=== PATIENT | male | born 1990 | race Two or more races ===

== ENCOUNTER 2025-04-04 17:30 | Emergency (ER) | payer MEDICAID, SELFPAY ==
--- NOTE | 2025-04-04 17:35 | EKG_ITS ---
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
[2025-04-04 17:42] VITALS: BP 158/93; PULSE 118; RESP 18; TEMP 37.1; O2SAT 97; BMI 35.9
--- NOTE | 2025-04-04 17:50 | XR_ITS ---
Examination: PA lateral chest 2 views FINDINGS: Upright PA and lateral chest 2 views Date and time: April 04, 2025 1809 hours INDICATIONS: Chest pain cardiac catheterization today. FINDINGS: Normal heart size. Lungs are clear. The osseous structures are intact IMPRESSION: No active disease
--- NOTE | 2025-04-04 17:51 | EDRME_ITS ---
<Statement entered by Isabela Greene MD - 04/12/25 06:24> As co-signing physician, I was present and available for consult prn. I concur with the plan and care as documented by the midlevel provider. Rapid Medical Screening Exam RME Arrival date/time: 04/04/25 17:30 34-year-old male with no known medical history presents to the emergency room with a chief complaint of chest pain, palpitations, weakness. Patient states has been working out in the sun and states the symptoms have progressively gotten worse since this morning. I have greeted and performed a focused initial assessment of this patient. A comprehensive ED assessment and evaluation of the patient, analysis of all test results, and completion of the medical decision making process will be conducted by additional ED providers. Chief Complaint: Arrhythmia/Palpitations Vital signs: Vital Signs Temperature 98.8 F 04/04/25 17:42 Pulse Rate 118 H 04/04/25 17:42 Respiratory Rate 18 04/04/25 17:42 Blood Pressure 158/93 H 04/04/25 17:42 Pulse Oximetry (%) 97 04/04/25 17:42 Oxygen Delivery Method Room Air 04/04/25 17:42 Vital signs reviewed by provider: Yes
[2025-04-04 18:26] LABS: Basophils # (Auto) 0.1 Thou/mm3 (0.0-0.2); Basophils % (Auto) 1 % (0-2.5); Eosinophils # (Auto) 0.1 Thou/mm3 (0.0-0.5); Eosinophils % (Auto) 1 % (0-10); Hematocrit 44.0 % (41.0-53.0); Hemoglobin 15.2 g/dL (13.5-16.0); Immature Granulocytes Auto 0.03 Thou/mm3 (0.00-0.00); Lymphocytes # (Auto) 2.4 Thou/mm3 (1.0-4.8); Lymphocytes % (Auto) 23 % (10-50); Mean Corpuscular HGB Conc 34.5 g/dl (31.0-37.0); Mean Corpuscular Hemoglobin 29.8 pg (25.0-35.0); Mean Corpuscular Volume 86 fL (80-100); Monocytes # (Auto) 0.8 Thou/mm3 (0.0-0.8); Monocytes % (Auto) 8 % (0-12); Neutrophils # (Auto) 7.0 Thou/mm3 (1.8-7.7); Neutrophils % (Auto) 68 % (37-80); Nucleated Red Blood Cell # 0.00 Thou/mm3 (0.00-0.00); Nucleated Red Blood Cell % 0 /100 WBC (0); Platelet Count 218 Thou/mm3 (140-440); RDW Standard Deviation 40.4 fL (35.1-43.9); Red Blood Count 5.10 Miln/mm3 (4.50-5.90); White Blood Count 10.4 Thou/mm3 (3.8-10.6)
[2025-04-04 18:40] LABS: Collection Type, Urine Clean Catch
[2025-04-04 18:42] LABS: INR 1.0 (0.9-1.3); Partial Thromboplastin Time 27.1 Seconds (22.0-36.0); Prothrombin Time 10.8 Seconds (9.0-12.2)
[2025-04-04 18:48] LABS: Alanine Aminotransferase 47 U/L (10-49); Albumin, Serum 5.1 gm/dL (3.5-5.0); Albumin/Globulin Ratio 1.8 (1.2-2.2); Alkaline Phosphatase 106 U/L (46-116); Anion Gap 12 (7-16); Aspartate Amino Transferase 38 U/L (0-34); BUN/Creatinine Ratio 8 Ratio (12-20); Bilirubin,Total 0.4 mg/dL (0.3-1.2); Blood Urea Nitrogen 10 mg/dL (9-23); Calcium 10.1 mg/dL (8.3-10.6); Calcium (Corrected) 10.1 mg/dL (8.5-10.1); Carbon Dioxide 25.5 mMol/L (20.0-31.0); Chloride 105 mMol/L (98-107); Creatine Kinase 194 U/L (34-171); Creatinine (Component) 1.2 mg/dL (0.6-1.3); Estimated Creatinine Clearance 106.1 mL/min (>60); Globulin 2.9 gm/dL (2.3-3.5); Glucose 92 mg/dL (74-106); Magnesium 2.1 mg/dL (1.6-2.6); Osmolality,Calculated 282 (275-295); Potassium 4.0 mMol/L (3.4-5.1); Sodium 142 mMol/L (136-145); Total Protein 8.0 gm/dL (5.7-8.2); Troponin I < 0.002 ng/mL (0.0-0.045); eGFR > 60 See Note
[2025-04-04 18:59] LABS: Bilirubin,Urine Negative (Negative); Blood,Urine Negative (Negative); Clarity,Urine Clear (Clear/Hazy); Color,Urine Yellow (Lt Yel-Yel); Glucose, Urine Negative (Negative); Granular Casts,Urine < 1 /hpf (0-1); Hyaline Casts,Urine 1 /hpf (0-1); Ketones,Urine Negative (Negative); Leukocyte Esterase,Urine Negative (Negative); Nitrite,Urine Negative (Negative); PH,Urine 6.0 (5.0-7.0); Protein,Urine 1+ (Neg - Trace); RBC,Urine 2 /hpf (0-3); Specific Gravity,Urine 1.022 (1.001-1.035); Squamous Epithelial Cell,Urine < 1 /hpf (0-5); Urobilinogen,Urine Negative mg/dL (0.0-1.0); WBC,Urine 5 /hpf (0-5)
[2025-04-04 18:59] LABS: B-Type Natriuretic Peptide < 20 pg/mL (0-100)
[2025-04-04 19:08] LABS: Amphetamine/Methamp Scrn,U Negative (Negative); Barbiturate Screen,Urine Negative (Negative); Benzodiazepines Screen,Urine Negative (Negative); Benzoylecgonine Screen, Ur Negative (Negative); Fentanyl Screen,Urine Negative (Negative); Opiate Screen,Urine Negative (Negative); THC Screen,Urine Negative (Negative)
--- NOTE | 2025-04-04 20:05 | EKG_ITS ---
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
--- NOTE | 2025-04-04 20:39 | EDNOTE_ITS ---
ED General RME/HPI General Chief complaint: Arrhythmia/Palpitations Stated complaint: Chest pain X 1 hour, weak, palpitations Time Seen by Provider: 04/04/25 20:32 Arrival date/time: 04/04/25 17:30 RME / HPI RME / HPI narrative: 34-year-old male patient with no significant past medical history, came in for evaluation regarding sudden onset of dizziness, palpitation, nausea, chest discomfort, weakness, 70 moderate. Patient has been working out in the sun and was hooking a trailer when it happened patient told me that it was too hard today. He has been drinking water however probably not enough. He denies any other complaints. Related Data Allergies Allergy/AdvReac Type Severity Reaction Status Date / Time Penicillins Allergy Verified 04/04/25 17:34 Review of Systems Review of Systems Narrative Review of Systems: Review of system reviewed and within normal limits except mentioned in HPI ED Exam Narrative Physical exam: VITAL SIGNS: Reviewed. GENERAL APPEARANCE: Alert and interactive, follows commands, no acute distress, HEAD AND FACE: Non-traumatic. ENT: PERRL, pink conjunctivitis, eyelid no trauma, Mucous membrane moist. NECK: Supple, nontender, no nuchal rigidity. CHEST: No tenderness, no crepitus, no paradoxical movement, no retractions. LUNGS: Clear, well ventilated, symmetric, no rales, no wheezing, no ronchi, no stridor, good breath sounds bilaterally. HEART: Regular rate, regular rhythm, no murmur, no gallops. ABDOMEN: Soft, positive bowel sounds, nondistended, no guarding, nontender, no rebound, no masses, RECTAL: Deferred. GENITAL: Deferred. NEUROLOGICAL: Gross motor function intact sensory function intact, Appropriate for age. MUSCULOSKELETAL: low back nontender, full range of motion. EXTREMITIES: Nontender, full range of motion. SKIN: Color pink, dry, no rash, no lacerations, no abrasions, no contusions. LYMPHATICS: Deferred. Course Quality Measures none Orders Category Date Time Status EKG (ED ONLY) *Do not use* NOW Care 04/04/25 17:35 Completed EKG (ED ONLY) *Do not use* NOW Care 04/04/25 20:05 Completed EKG (ED Only) Stat Exams 04/04/25 17:35 Draft EKG (ED Only) Stat Exams 04/04/25 20:05 Draft XR chest 2V Stat Exams 04/04/25 17:50 Completed B-Type Natriuretic Peptide Stat Lab 04/04/25 17:58 Completed CBC Stat Lab 04/04/25 17:58 Completed CK [Creatine Kinase] Stat Lab 04/04/25 17:58 Completed Comprehensive Metabolic Panel Stat Lab 04/04/25 17:58 Completed Drug Screen,Urine Stat Lab 04/04/25 18:36 Completed Magnesium Stat Lab 04/04/25 17:58 Completed Partial Thromboplastin Time Stat Lab 04/04/25 17:58 Completed Prothrombin Time with INR Stat Lab 04/04/25 17:58 Completed Troponin I Stat Lab 04/04/25 17:58 Completed Urinalysis Stat Lab 04/04/25 18:36 Completed Acetaminophen Tab [Tylenol ES Tab] Med 04/04/25 20:36 Discontinued 1,000 mg PO X1 ONE Vital Signs Vital signs: Vital Signs Temperature 98.8 F 04/04/25 17:42 Pulse Rate 118 H 04/04/25 17:42 Respiratory Rate 18 04/04/25 17:42 Blood Pressure 158/93 H 04/04/25 17:42 Pulse Oximetry (%) 97 04/04/25 17:42 Oxygen Delivery Method Room Air 04/04/25 17:42 Discharge Plan Plan Patient Disposition: HOME (Self Care) Discharge Disposition comment: Stable Prescriptions/Referrals Referrals: No Primary/Family,Physician [Primary Care Provider] - In 1 week Problem List Clinical Impression: Heat exhaustion Patient/Caregiver Discharge Instructions Discharge Activity: activity as tolerated Education Materials: First Aid: Heat Exposure Additional Instructions: Thank you for the opportunity for serving you today. You are stable for discharged . You are advised to: Follow-up with your PCP in 1 to 2 days Return to ED for worsening of symptoms Increase oral fluids Print Language: Luxembourgish Stand Alone Forms: [employer] Award Info., Patient Portal Info Letter MDM Narrative MDM hospital course: 34-year-old male patient with no significant past medical history, came in for evaluation regarding sudden onset of dizziness, palpitation, nausea, chest discomfort, weakness, 70 moderate. Patient has been working out in the sun and was hooking a trailer when it happened patient told me that it was too hard to day. He has been drinking water however probably not enough. He denies any other complaints. Patient's workup today all came back normal including troponin which is normal also. EKG showed normal sinus rhythm, no ST segment elevation or depression noted. I personally reviewed and interpreted the x-ray of this patient. There is no acute abnormalities found, no infiltrates no pneumothorax no hemothorax normal chest x-ray. Review of other structures was without significant abnormal findings also. I additionally reviewed the radiologist report and agree with the interpretation. Prior to discharge. Patient is not having any symptoms. Medication Administration(s) Medication Administration History Discontinued Medications Acetaminophen (Acetaminophen 500 Mg Tablet) 1,000 mg PO X1 ONE Stop: 04/04/25 20:37 Dispositon Disposition: Discharge Home
[2025-04-04] MEDS: ACETAMINOPHEN 500 MG TABLET 1000 MG PO (20:41)
== END 2025-04-04 20:45 | disposition home or self-care (01) ==
PROVIDERS: Nurse Practitioner Family; Emergency Provider Emergency Medicine
DX: R07.9 Chest pain, unspecified (principal); R53.83 Other fatigue; R00.0 Tachycardia, unspecified
CPT/HCPCS: 36415; 71046; 80053; 80307; 81001; 82550; 83735; 83880; 84484; 85025; 85610; 85730; 93005; 99283; A9270